=== PATIENT | female | born 1950 | race Caucasian/White ===

== ENCOUNTER 2016-04-27 12:16 | Day surgery (SDC) | payer MEDICARE ==
[~2016-04-27] VITALS: Ht 165.1 cm; Wt 54.9 kg
[~2016-04-27 12:16] MED LIST: 0.9% Sodium Chloride 1,000 ML IV SCH; ALBU18HF INH; CEPH500C PO; FLUT15.88 NS; LOSA50TA37 PO; METF500T4 PO; MULT1CAP33 PO; Sodium Chloride LOK Flush 10 mL Syringe IV PRN; fentaNYL-PF 50 mCg/mL 2 mL Inj IVPUSH PRN
[2016-04-27 13:18] VITALS: BP 129/78; PULSE 98; RESP 19; O2SAT 94
[2016-04-27 14:05] VITALS: BP 106/62; PULSE 88; RESP 16; O2SAT 96
[2016-04-27 14:15] VITALS: BP 107/55; PULSE 90; RESP 14; O2SAT 95
[2016-04-27 14:23] VITALS: BP 125/70; PULSE 91; RESP 16; O2SAT 97
--- NOTE | 2016-04-27 14:56 | ENDO ---
[address] [address] ENDOSCOPY PROCEDURE PATIENT: JUAN ANTONIO JONES : 1950 MR#: [id number] ADMIT: 04/27/2016 JOB ID: [id number] PROCEDURE: Colonoscopy. INDICATION: Screening. ANESTHESIA: Patient's ASA classification is two. Mallampati score is two. MEDICATIONS: 1. Versed 5 mg. 2. Fentanyl 100 mcg. INSTRUMENT USED: PCF H 180 AL PREPARATION QUALITY: Good. PROCEDURE DETAILS: After informed consent was obtained, the patient was brought to the GI suite, where she was placed on oxygen via nasal cannula and monitored with continuous pulse oximeter, telemetry, and blood pressure monitoring. A time-out was performed, then she was placed in the left lateral decubitus position and medications were administered for sedation. Digital rectal exam was performed and was unremarkable. The colonoscope was then inserted into the rectum and advanced under direct visualization to the cecum, which was identified by the presence of the ileocecal valve and appendiceal orifice. Once the cecum was reached, the colonoscope was withdrawn back to the rectum as the mucosa and lumen were examined. In the rectum, retroflexion was performed. Following retroflexion, the remaining air in the rectum was suctioned and the procedure was completed. FINDINGS: 1. A few scattered diverticula were seen throughout the sigmoid colon. 2. Otherwise normal exam from rectum to cecum. IMPRESSION: Scattered sigmoid diverticula. RECOMMENDATIONS: Repeat colonoscopy in 10 years, sooner if symptoms should dictate. COMPLICATIONS: None. ESTIMATED BLOOD LOSS: Zero.
== END 2016-04-27 23:59 | disposition home or self-care (01) ==
LOC: END 12:16
PROVIDERS: ATTEND Internal Medicine Gastroenterology
DX: Z12.11 Encounter for screening for malignant neoplasm of colon (principal); K57.30 Diverticulosis of large intestine without perforation or abscess without bleeding; E11.9 Type 2 diabetes mellitus without complications; Z79.84 Long term (current) use of oral hypoglycemic drugs
CPT/HCPCS: G0121; G0500; J2250; J7030